=== PATIENT | male | born 2000 ===

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

== ENCOUNTER 2022-01-12 13:31 | Emergency (ER) | payer SELFPAY ==
[2022-01-12] MEDS ORDERED: NALOXONE 0.4 MG/1 ML INJ IV ONE (13:32)
[2022-01-12] MEDS ORDERED: SODIUM CHLORIDE 0.9% 1000 ML 1,000 ML IV ONE (13:32)
[2022-01-12 13:56] VITALS: BP 164/62
[2022-01-12 14:55] LABS: INR 0.91 (0.87-1.13)
[2022-01-12 14:58] LABS: Alanine Aminotransferase 9 units/L (7-56); Albumin 4.4 g/dL (3.9-5); BUN/Creatinine Ratio 13; Blood Urea Nitrogen 10 mg/dL (9-20); Calcium 8.5 mg/dL (8.4-10.2); Hemolysis Index 18
--- NOTE | 2022-01-12 15:27 | Emergency Department Report ---
ED General Adult HPI - General Chief complaint: Overdose Stated complaint: POSS OVERDOSE PUI?: No Time Seen by Provider: 01/12/22 13:32 Source: patient Mode of arrival: Ambulatory Limitations: No Limitations - History of Present Illness Initial comments: pt was brought in by his friend gold and semi concious, his friend said he does drugs and he took something . -: hour(s) Improves with: none Worsens with: none Associated Symptoms: denies: denies other symptoms, confusion, chest pain, cough Treatments Prior to Arrival: none - Related Data Allergies Allergy/AdvReac Type Severity Reaction Status Date / Time No Known Allergies Allergy Unverified 11/26/17 11:48 ED Review of Systems ROS: Stated complaint: POSS OVERDOSE Other details as noted in HPI Comment: Unobtainable due to pts medical conditions Constitutional: denies: chills, fever Eyes: denies: eye pain, eye discharge, vision change ENT: denies: ear pain, throat pain Respiratory: denies: cough, shortness of breath, wheezing Cardiovascular: denies: chest pain, palpitations Endocrine: no symptoms reported Gastrointestinal: denies: abdominal pain, nausea, diarrhea Genitourinary: denies: urgency, dysuria Musculoskeletal: denies: back pain, joint swelling, arthralgia Skin: denies: rash, lesions Neurological: denies: headache, weakness, paresthesias Psychiatric: denies: anxiety, depression Hematological/Lymphatic: denies: easy bleeding, easy bruising ED Past Medical Hx - Past Medical History Previous Medical History?: No Hx Hypertension: No - Social History Smoking Status: Unknown if ever smoked Substance Use Type: Alcohol, Marijuana ED Physical Exam - General Limitations: No Limitations General appearance: alert, appears intoxicated, other (drowsy) - Head Head exam: Present: atraumatic, normocephalic - Eye Eye exam: Present: normal appearance - ENT ENT exam: Present: mucous membranes moist - Neck Neck exam: Present: normal inspection - Respiratory Respiratory exam: Present: normal lung sounds bilaterally. Absent: respiratory distress - Cardiovascular Cardiovascular Exam: Present: regular rate, normal rhythm. Absent: systolic murmur, diastolic murmur, rubs, gallop - GI/Abdominal GI/Abdominal exam: Present: soft, normal bowel sounds - Rectal Rectal exam: Present: deferred - Extremities Exam Extremities exam: Present: normal inspection - Back Exam Back exam: Present: normal inspection - Neurological Exam Neurological exam: Present: alert, oriented X3 - Psychiatric Psychiatric exam: Present: normal affect, normal mood - Skin Skin exam: Present: warm, dry, intact, normal color. Absent: rash ED Course Vital Signs 01/12/22 13:54 Pulse Rate 91 H Respiratory 18 Rate Blood Pressure 164/62 [Left] O2 Sat by Pulse 99 Oximetry ED Medical Decision Making - Lab Data Result diagrams: 01/12/22 14:09 - EKG Data -: EKG Interpreted by Me EKG shows normal: sinus rhythm Rate: tachycardia - Radiology Data Radiology results: report reviewed, image reviewed - Medical Decision Making work up negative awake and alert after narcan , vss , denies SI, wants to leave vss no distress Critical care attestation.: If time is entered above; I have spent that time in minutes in the direct care of this critically ill patient, excluding procedure time. ED Disposition Clinical Impression: Oxycodone use disorder, moderate Disposition: 01 HOME / SELF CARE / HOMELESS Is pt being admited?: No Does the pt Need Aspirin: No Condition: Stable Instructions: Opioid Use Disorder Referrals: PRIMARY CARE, [Primary Care Provider] - 3-5 Days
--- NOTE | 2022-01-12 15:42 | XRay Report ---
CHEST 1 VIEW 01/12/2022 1:58 PM INDICATION / CLINICAL INFORMATION: Altered Mental Status. COMPARISON: None available. FINDINGS: SUPPORT DEVICES: None. HEART / MEDIASTINUM: No significant abnormality. LUNGS / PLEURA: No significant pulmonary or pleural abnormality. No pneumothorax. ADDITIONAL FINDINGS: No significant additional findings. IMPRESSION: 1. No acute findings. Signer Name: Gilmer Barclay Jr, MD Signed: 01/12/2022 3:37 PM Workstation Name: [id number]
--- NOTE | 2022-01-16 10:06 | Electrocardiograph Report ---
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
== END 2022-01-12 15:52 | disposition home or self-care (01) ==
LOC: ED 13:31
DX: F11.90 Opioid use, unspecified, uncomplicated (principal); F10.20 Alcohol dependence, uncomplicated; F12.90 Cannabis use, unspecified, uncomplicated
CPT/HCPCS: 71045; 80053; 80320; 82550; 82962; 84484; 85610; 93005; 96361; 96374; 99284; G0480

== ENCOUNTER 2022-01-20 01:30 | Emergency (ER) | payer SELFPAY ==
[2022-01-20] MEDS ORDERED: NALOXONE 2 MG/2 ML INJ IV ONE (01:45)
--- NOTE | 2022-01-20 02:20 | Emergency Department Report ---
History of Present Illness - General Chief Complaint: Overdose Stated Complaint: UNRESPONSIVE Time Seen by Provider: 01/20/22 01:37 Source: family Mode of arrival: Ambulatory Limitations: Altered Mental Status - History of Present Illness Initial Comments: 21 yo M brought in with possible intentional overdose on unknown illicit drug with unresponsiveness. Pt mother told his bedside nurse that his sister who found him in the house not breathing right. History is very limited. No other modifying or associated factors. - Related Data Allergies Allergy/AdvReac Type Severity Reaction Status Date / Time No Known Allergies Allergy Verified 01/20/22 02:30 ED Review of Systems ROS: Stated complaint: UNRESPONSIVE Other details as noted in HPI Comment: Unobtainable due to pts medical conditions ED Past Medical Hx - Past Medical History Hx Hypertension: No - Social History Smoking Status: Unknown if ever smoked Substance Use Type: Alcohol, Marijuana ED Physical Exam - General Limitations: Altered Mental Status General appearance: other (unresponsive ) - Head Head exam: Present: normal inspection - Eye Eye exam: Present: normal appearance Pupils: Present: other (pinpointed bilaterally ) - ENT ENT exam: Present: normal exam, normal orophraynx, mucous membranes moist - Neck Neck exam: Present: normal inspection, full ROM. Absent: tenderness - Respiratory Respiratory exam: Present: normal lung sounds bilaterally. Absent: respiratory distress, accessory muscle use - Cardiovascular Cardiovascular Exam: Present: regular rate, normal rhythm, normal heart sounds - GI/Abdominal GI/Abdominal exam: Present: soft, normal bowel sounds. Absent: distended, tenderness - Extremities Exam Extremities exam: Present: normal inspection, normal capillary refill. Absent: full ROM, tenderness, pedal edema - Back Exam Back exam: Present: normal inspection. Absent: tenderness - Neurological Exam Neurological exam: Present: alert, oriented X3 - Psychiatric Psychiatric exam: Present: normal affect, normal mood - Skin Skin exam: Present: warm, normal color ED Course Vital Signs 01/20/22 01:30 Temperature 97.4 F L Pulse Rate 64 Respiratory 6 L Rate Blood Pressure 136/64 [Right] O2 Sat by Pulse 86 Oximetry - Reevaluation(s) Reevaluation #1: 01/20/22 04:29 pt woke up and more awake with dilated pupil and was able to collaborate the story. He says he will like to be discharge. I asked patient several times in different way he wanted to hurt himself or kill himself and he denies it all the time. Pt UDS only shows amphetamine and negative for any traceable opoiod. 01/20/22 04:30 ED Medical Decision Making - Lab Data Result diagrams: 01/20/22 01:50 01/20/22 01:50 - Medical Decision Making intentionally took unknown amount or illicit drug-- will go ahead and give narcan 0.2 mg x 1-- noticed patient became more alert and was able to collaborate the story. Critical care attestation.: If time is entered above; I have spent that time in minutes in the direct care of this critically ill patient, excluding procedure time. ED Disposition Clinical Impression: Opioid overdose Qualifiers: Encounter type: initial encounter Injury intent: intentional self-harm Qualified Code(s): T40.2X2A - Poisoning by other opioids, intentional self-harm, initial encounter Disposition: 01 HOME / SELF CARE / HOMELESS Is pt being admited?: No Does the pt Need Aspirin: No Condition: Stable Instructions: Intentional Drug Overdose, Preventing Poisoning, Adult Additional Instructions: Avoid the use of illicit drug use for your overall health Call or return to ED if your symptoms worsen Time of Disposition: 04:31
[2022-01-20 02:21] LABS: Basophils % (Auto) 0.2 % (0.0-1.8); Eosinophils % (Auto) 0.2 % (0.0-4.3); Hematocrit 44.8 % (35.5-45.6); Hemoglobin 14.8 gm/dl (11.8-15.2); Lymphocytes # (Auto) 1.8 K/mm3 (1.2-5.4); Lymphocytes % (Auto) 14.6 % (13.4-35.0); Mean Corpuscular HGB Conc 33 % (32-34); Mean Corpuscular Volume 92 fl (84-94); Monocytes # (Auto) 0.7 K/mm3 (0.0-0.8); Monocytes % (Auto) 5.5 % (0.0-7.3); Platelet Count 316 K/mm3 (140-440); Red Blood Count 4.86 M/mm3 (3.65-5.03); Red Cell Distribution Width 13.7 % (13.2-15.2)
[2022-01-20] MEDS ORDERED: SODIUM CHLORIDE 0.9% 1000 ML 1,000 ML ONE (02:22)
[2022-01-20 02:29] LABS: Alanine Aminotransferase 13 units/L (7-56); Albumin 4.9 g/dL (3.9-5); BUN/Creatinine Ratio 9; Blood Urea Nitrogen 9 mg/dL (9-20); Calcium 9.1 mg/dL (8.4-10.2); Hemolysis Index 9
[2022-01-20 02:37] LABS: INR 0.92 (0.87-1.13)
[2022-01-20 02:38] LABS: Partial Thromboplastin Time 27.3 Sec. (24.2-36.6)
[2022-01-20 02:40] LABS: Color,Urine Yellow (Yellow)
[2022-01-20 02:41] LABS: Bilirubin,Urine Negative (Negative); Blood,Urine Negative (Negative); Urobilinogen,Urine 0.2 mg/dL (<2.0)
[2022-01-20 02:42] LABS: Free T4 (Free Thyroxine) 1.16 ng/dL (0.76-1.46)
[2022-01-20 02:45] LABS: Benzodiazepines Screen,Urine Negative; Cocaine Screen,Urine Negative; Methadone Screen,Urine Negative; Opiate Screen,Urine Negative
[2022-01-20 02:46] LABS: Granular Casts,Urine 4 /LPF; Mucus,Urine 3+ /HPF; Sperm,Urine 3+ /HPF (NP)
[2022-01-20 03:02] LABS: Amphetamine Screen,Urine Positive; Cannabinoid Screen,Urine Positive
[2022-01-20] MEDS ORDERED: ONDANSETRON 4 MG/2 ML INJ ONE (04:04)
[2022-01-20 07:27] VITALS: BP 135/74
== END 2022-01-20 04:25 | disposition home or self-care (01) ==
LOC: ED 01:30
DX: T40.2X1A Poisoning by other opioids, accidental (unintentional), initial encounter (principal); Y92.89 Other specified places as the place of occurrence of the external cause
CPT/HCPCS: 36415; 80053; 80307; 81001; 83880; 84439; 84443; 84484; 85025; 85610; 85730; 96374; 99283; J2310; J2405; J7030